=== PATIENT | female | born 2000 | race Caucasian/White ===

== ENCOUNTER 2025-01-19 09:12 | Outpatient (AMB) | payer OTHER, SELFPAY ==
--- NOTE | 2025-01-19 09:14 | A.OFFPC_ITS ---
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 She is transferring from pediatrics. 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 Has a degree in marketing is looking to get a full-time job. 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, [employer] Current occupational exposures/hazards: No Cognitive needs: No Hearing needs: No Vision needs: No Questionnaire Thrive Questionnaire I am a: Patient What is your living situation today?: I have a steady place to live Within the past 12 months, did the food you bought not last and you didn't have the money to get more?: Never true Within the past 12 months, did you worry whether your food would run out before you got money to buy more?: Never true Do you have trouble paying for medicines?: No Do you have trouble getting transportation to medical appointments?: No Do you have trouble paying your heating and electricity bill?: No Do you have trouble taking care of your child, family member or friend?: No Do you have trouble with day-to-day activities such as bathing, preparing meals, shopping, managing finances, etc.?: No Are you currently unemployed and looking for a job?: No Are you interested in more education?: Yes Please select the resources that you would like help with: None Currently or been in a relationship where the following occur: No concerns reported THRIVE Score: 0 AUDIT C Alcohol Use Questionnaire (AUDIT-C) 1. How often do you have a drink containing alcohol?: 2-4 times a month 2. How many drinks containing alcohol do you have on a typical day when you are drinking?: 3 or 4 3. How often do you have six or more drinks on one occasion?: Never Total Score: 3 GABY-7 AMB Questionnaire GABY-7 Feeling nervous, anxious, or on edge: 0 = Not at all Not being able to stop or control worryin = Not at all Worrying too much about different things: 0 = Not at all Trouble relaxin = Not at all Being so restless that it is hard to sit still: 0 = Not at all Becoming easily annoyed or irritable: 0 = Not at all Feeling afraid as if something awful might happen: 0 = Not at all Total GABY-7 score (0-4 normal; 5-9 mild; 10-14 moderate; 15-21 severe): 0 Source: Developed by Drs. Reza Dacosta, Eloisa Marmolejo, Srinivas Jacobson and colleagues, with an educational edu from [employer]. GABY-7 Assessment Billing GABY-7 Assessment Tool: GABY-7 Assessment 83801 Physical exam (Primary Care) Currently or been in a relationship where the following occur: No concerns reported Const Orientation/consciousness: patient oriented x3 HENMT Ears: hearing grossly normal bilaterally and TM's normal bilaterally General nose exam: No nasal polyps present Face and sinus: Yes sinuses nontender Mouth: Normal oral and palatal mucosa present Eyes Pupils: Equal, round and reactive pupils present EOM: EOMs intact bilaterally Neck Neck: Yes full ROM and Yes no lymphadenopathy Thyroid: Thyroid normal Chest Chest palpation & inspection: normal inspection of the chest Resp Auscultation: clear to auscultation bilaterally Cardio Rate: regular rate Rhythm: regular rhythm Heart sounds: S1 normal heart sound present and S2 normal heart sound present Peripheral pulses: Peripheral pulses 2+ throughout GI Other: Soft, nontender Auscultation: normal bowel sounds Rectal Exam - Female: deferred General: Yes no CVA tenderness Back/Spine/Pelvis Other: Nontender Back: no CVA tenderness Skin General skin exam: no rashes or lesions noted Neuro General: patient oriented x3, gait normal, CN's II-XI intact bilaterally and deep tendon reflexes 2+ bilaterally Cranial nerves: Yes Equal, round and reactive pupils present Motor exam (neuro): 5/5 motor strength present throughout Sensory Exam: double simultaneous stimulation for sensation normal Coordination: hwwzor-lh-wcgl test normal and Romberg test negative Extrem General: Yes normal to inspection and Yes full ROM Psych Affect: normal affect Attitude: cooperative Thought process: Normal thought process present Thought content: Normal thought content present Insight: Good insight present (Psych) Judgement: Good judgement present (Psych) Coding Level of Care Code New Pt Prev Care 18-39yr([id number] Diagnoses Routine general medical examination at a [facility] Z00.00 Additional Codes GABY-7 Assessment Billing - GABY-7 Assessment Tool: GABY-7 Assessment 74786 ([id number]) Assessment & Plan Assessment & Plan (1) Routine general medical examination at a health care facility: Code(s): Z00.00 - Encounter for general adult medical examination without abnormal findings Plan: reviewed labs ordered std testing ordered- will let me know if she develops sx refilled ocps referral to automobile brakes bonder Orders: Orders Comprehensive [place]. Panel Fast Today Z00.00 - Encounter for general adult me dical examination without abnormal findings, Z72.51 - High risk heterosexual behavior Complete Blood Count Auto Diff Today Z00.00 - Encounter for general adult medical examination without abnormal findings, Z72.51 - High risk heterosexual behavior TSH reflex Free T4 Today Z00.00 - Encounter for general adult medical examination without abnormal findings, Z72.51 - High risk heterosexual behavior Lipid Panel Today Z00.00 - Encounter for general adult medical examination without abnormal findings, Z72.51 - High risk heterosexual behavior Microalbumin, Random (w Creat) Today Z00.00 - Encounter for general adult medical examination without abnormal findings, Z72.51 - High risk heterosexual behavior Syphilis Screen Today Z00.00 - Encounter for general adult medical examination without abnormal findings, Z20.2 - Contact with and (suspected) exposure to infections with a predominantly sexual mode of transmission, Z72.51 - High risk heterosexual behavior Hepatitis C Antibody Today Z00.00 - Encounter for general adult medical examin ation without abnormal findings, Z72.51 - High risk heterosexual behavior UA CC w/rflx Micro + Cult Today R30.0 - Dysuria, Z00.00 - Encounter for general adult medical examination without abnormal findings, Z72.51 - High risk heterosexual behavior CT NG by PCR Urine Today R30.0 - Dysuria, Z00.00 - Encounter for general adult medical examination without abnormal findings, Z72.51 - High risk heterosexual behavior HIV Ab/Ag Today Z00.00 - Encounter for general adult medical examination without abnormal findings, Z20.2 - Contact with and (suspected) exposure to infections with a predominantly sexual mode of transmission, Z72.51 - High risk heterosexual behavior Referrals POWDERED SUGAR SUPERVISOR Referral Z01.419 - Encounter for gynecological examination (general) (routine) without abnormal findings Medications: New levonorgestrel-ethinyl estrad 0.1-20 mg-mcg (Lessina) 1 tab PO DAILY 84 tabs 3RF
[2025-01-19 09:15] VITALS: BP 118/72; PULSE 103; RESP 12; TEMP 36.8; O2SAT 98; BMI 25.3
--- OUTSIDE RECORDS SUMMARY | 2025-01-19 09:55 | XMS_ITS | Clinical Summary ---
Author Organization [facility] Address [address] [place] [id number] Phone Care Team Providers Care Plumber Name Role Phone Unavailable Primary Care Provider Unavailabl e Allergies No known active allergies Medications Multiple Vitamin (MULTIVITAMIN) tablet Take 1 tablet by mouth daily. Active Lessina 0.1-20 MG-MCG per tabletIndications: Encounter for other contraceptive management TAKE ONE TABLET BY MOUTH EVERY DAY 84 tablet 3 4 Active Active Problems Problem Noted Date Diagnosed Date High triglycerides 07/24/2023 Overview (07/24/2023): 05/2023- 216-normal total CHO. Unclear if was fasting sample. Repeat next year Vitiligo 05/26/2016 Immunizations Immunization Administration Dates Next Due DTaP 08/27/2004, 3,03/17/2001,01/13,2000 H1N1 03/14/2009 HPV, Quadrivalent 05/09/2014,11/02/2013,01/30/20 13 Hep A, Adult 12/23/2019 Hep A, ped/adol 03/02/2019 Hep B, ped/adol 06/25/2001,2000,2000 Hib (PRP-T) 12/08/2001, 2,01/13/2001,11/06 IPV 08/27/2004, 2,01/13/2001,11/06 Influenza 11/22/2008, 8,11/13/2006,01/28,02/12/2005,01/11/2005 Influenza, injectable, MDCK, preservative free, quadrivalent 12/20/2017 Influenza, injectable, quadr ivalent, preservative free 06/09/2023,02/28/2021,12/23/2019,12/02,11/15/2018,07/18/2016,01/02/2016 ,05/24/2015,12/12/2012 Influenza, injectable, triva lent, preservative free 04/03/2017 Influenza, intranasal, quadrivalent 11/02/2013 Influenza, intranasal, trivalent 12/23/2011,11/17,12/04/2009 MMR 10/03/2005,12/08/2001 Meningococcal Conj (Menactra) MCV4P 06/17/2018,1 02/21/2011 Pneumococcal Conjugate 03/17/2001,01/13/2001, Tdap 05/29/2021,12/23/2011 Varicella 11/18/2007,09/15/2001 Social History Tobacco Use Types Packs/Day Years Used Date Smoking Tobacco: Never Smokeless Tobacco: Never Comments:Denies smoking or v aping at all. Alcohol Use Standard Drinks/Week Comments Yes 0 (1 standard drink = 0.6 oz pure alcohol) Parents are aware, drinks only in social situations. Feels she is safe, Hunger/Food Answer Date Recorded In the last 12 months, did y ou or your family ever eat less than you felt you should because there wasn't enough money for food? No 05/29/2021 Stable Housing Answer Date Recorded Are you worried that in the next 2 months you may not have stable housing? No 05/29/2021 Transportation Concerns Answer Date Rec orded In the last 12 months, have you or your family ever had to go without healthcare because you didn't have a way to get there? No 05/29/2021 Hazards in Home Answer Date Recorded Think about the place you li ve. Do you have problems with any of the following? Pests (mice or roaches), mold, no/not working smoke detectors, water leaks, no window guards. No 2021 Financing Utilities Answer Date Recorde d In the last 12 months, has t he electric, gas, oil, or water company threatened to shut off your services in your home? No 05/29/2021 Safety at Home Answer Date Recorded Are you or your family worried about feeling saf e in your home? No 05/29/2021 Outside Support Answer Date Recorded Do you feel that you need mo re support from other people or programs to help you care for yourself or your family? No 05/29/2021 Understanding Health Concerns Answer Da te Recorded Do you need help understandi ng your or your child's healthcare needs (diagnosis, medications, plan, etc.)? No 05/29/2021 Financing Health Concerns Answer Date R ecorded In the last 12 months, was t here a time when your child needed to see a doctor or get medications or supplies but could not because of cost? No 05/29/2021 Missing School or Work Answer Date Francisco rded Did you or your child miss s chool or work because of a health problem that could have been avoided? No 05/29/2021 Comments No Sex and Gender Information Value Date Recorded Sex Assigned at Not on file Legal Sex Female 5:20 PM EST Gender Identity Not on file Sexual Orientation Straight 12/23/2019 8: 35 AM EST Last Filed Vital Signs Vital Sign Reading Time Taken Comments Blood Pressure 120/70 06/09/2023 9:44 AM EDT Pulse 82 06/09/2023 9:44 AM EDT Temperature 36.7 C (98.1 F) 11/02/2013 12:00 AM EDT Respiratory Rate - - Oxygen Saturation 98% 03/02/2019 3:27 PM EST Inhaled Oxygen Concentration - - Weight 68.3 kg (150 lb 9.6 oz) 06/09/2023 9:44 A M EDT Height 168.9 cm (5' 6.5 ) 06/09/2023 9:44 AM EDT Body Mass Index 23.94 06/09/2023 9:44 AM EDT Plan of Treatment Health Maintenance Due Date Last Done Comments Influenza Vaccines (#1) 2024 06/09/19 24, 12/19/2021, 02/28/2021, Additional history exists COVID-19 Vaccine ( season) 2024 12/19/2021, 02/28/2021, 07/04/2020, Additional history exists DTaP,Tdap,and Td Vaccines (8 - Td or Tdap) 05/30/2031 05/29/2021, 12/23/2011, 08/27/2004, Additional history exists Pneumococcal Vaccine Aged Out 03/17/2001, 01/13/2001, 2000 No longer eligible based on patient's age to complete this topic Hepatitis B Vaccines Completed 06/25/2001, 2000, 2000 HIB Vaccines Completed 12/08/2001, 02/18, 01/13/2001, Additional history exists IPV Vaccines Completed 08/27/2004, 08/19, 01/13/2001, Additional history exists MMR Vaccines Completed 10/03/2005, 12/08/2001 Varicella Vaccines Completed 11/18/2007, 09/15/2001 HPV Vaccines Completed 05/09/2014, 10/18, 01/29/2013 Meningococcal Vaccine Completed 06/17/2018, 012 Hepatitis A Vaccines Completed 12/23/2019, 03/02/19 20 Men B Vaccine Aged Out No longer elig ible based on patient's age to complete this topic Procedures * Due to [place] Open Lending law, this organization might not be sharing sensitive test results. Procedure Name Priority Date/Time Associated Diagnosis Comments CHLAMYDIA AND GONORRHEA, AMPLIFIED Routine 06/09/2023 9:59 AM EDT Screening examination for STI from Last 3 Months or Most Recently Relevant to Health Maintenance Results * Due to [place] Open Lending law, this organization might not be sharing sensitive test results. * (ABNORMAL) Chlamydia and Gonorrhoea, Amplified (06/09/2023 9:59 AM EDT) Chlamydia trachomatis RNA, TMA Detected(A) Not Detected 06/10/2023 9:44 AM EDT [facility] Neisseria gonorrhoeae, AIDAN Not Detected Not Detected 06/10/2023 9:44 AM EDT [facility] Specimen Type ENDOCERVICAL 9:44 AM EDT [facility] Swab (Vagina) 06/09/2023 9:5 9 AM EDT 06/09/2023 2:18 PM EDT us Sindy Molina NP LAB MICROBIOLOGY - GENERAL ORD ERABLES Final Result [facility] from Last 3 Months or Most Recently Relevant to Health Maintenance
--- OUTSIDE RECORDS SUMMARY | 2025-01-19 09:55 | XMS_ITS | Encounter Summary ---
Author Organization [facility] Address [address] [place] [id number] Phone Care Team Providers Care Helper Steel [employer]rication Name Role Phone Sindy Molina NP Primary Care Provider [phone] Encounter Details Date Type Department Care Team (Late st Contact Info) Description 09/25/2016 Conversion Encounter [facility] - [address], [address] [place] [address] Sindy Molina NP [address] [place] [address] Social History Tobacco Use Types Packs/Day Years Used Date Smoking Tobacco: Never Assessed Comments Unknown Sex and Gender Information Value Date Recorded Sex Assigned at Not on file Legal Sex Female 5:20 PM EST Gender Identity Not on file Sexual Orientation Straight 12/23/2019 8: 35 AM EST documented as of this encounter Plan of Treatment Not on file documented as of this encounter Visit Diagnoses Not on filedocumented in this encounter Care Teams [employer] Relationship Specialty Start Date End Date Sindy Molina NP [address] [place] [address] PCP - General 04/09/16 11/12/23 documented as of this encounter
--- OUTSIDE RECORDS SUMMARY | 2025-01-19 09:55 | XMS_ITS | Encounter Summary ---
Author Organization [facility] Address [address] [place] [address] Phone Care Team Providers Care Community Service Patrol Officer Name Role Phone Sindy Molina TOXICOLOGIST Primary Care Provider [phone] Reason for Visit * Reason Comments Med Refill Encounter Details Date Type Department Care Team (Late st Contact Info) Description 03/08/2021 Refill [facility] - [place] [address] [place] [address] Sindy Molina NP [address] [place] [address] Encounter for other contraceptive management Social History Tobacco Use Types Packs/Day Years Used Date Smoking Tobacco: Never Smokeless Tobacco: Never Alcohol Use Standard Drinks/Week Comments Yes 0 (1 standard drink = 0.6 oz pure alcohol) parents are aware, socially, only last month Hunger/Food Answer Date Recorded In the last 12 months, did y ou or your family ever eat less than you felt you should because there wasn't enough money for food? No 12/23/2019 Stable Housing Answer Date Recorded Are you worried that in the next 2 months you may not have stable housing? No 12/23/2019 Transportation Concerns Answer Date Rec orded In the last 12 months, have you or your family ever had to go without healthcare because you didn't have a way to get there? No 12/23/2019 Hazards in Home Answer Date Recorded Think about the place you li ve. Do you have problems with any of the following? Pests (mice or roaches), mold, no/not working smoke detectors, water leaks, no window guards. No 2019 Financing Utilities Answer Date Recorde d In the last 12 months, has t he electric, gas, oil, or water company threatened to shut off your services in your home? No 12/23/2019 Safety at Home Answer Date Recorded Are you or your family worried about feeling saf e in your home? No 12/23/2019 Outside Support Answer Date Recorded Do you feel that you need mo re support from other people or programs to help you care for yourself or your family? No 12/23/2019 Understanding Health Concerns Answer Da te Recorded Do you need help understandi ng your or your child's healthcare needs (diagnosis, medications, plan, etc.)? No 12/23/2019 Financing Health Concerns Answer Date R ecorded In the last 12 months, was t here a time when your child needed to see a doctor or get medications or supplies but could not because of cost? No 12/23/2019 Missing School or Work Answer Date Francisco rded Did you or your child miss s chool or work because of a health problem that could have been avoided? No 12/23/2019 Comments No Sex and Gender Information Value Date Recorded Sex Assigned at Not on file Legal Sex Female 5:20 PM EST Gender Identity Not on file Sexual Orientation Straight 12/23/2019 8: 35 AM EST documented as of this encounter Plan of Treatment Not on file documented as of this encounter Visit Diagnoses Diagnosis Encounter for other contraceptive management documented in this encounter Care Teams Community Service Patrol Officer Relationship Specialty Start Date End Date Sindy Molina NP [address] [place] [id number] PCP - General 04/09/16 11/12/23 documented as of this encounter
--- OUTSIDE RECORDS SUMMARY | 2025-01-19 09:55 | XMS_ITS | Encounter Summary ---
Author Organization [facility] Address [address] [place] [id number] Phone Care Team Providers Care Assisted Living Manager Name Role Phone Sindy Molina COIL CLEANER Primary Care Provider [phone] Reason for Visit * Reason Comments Med Refill Encounter Details Date Type Department Care Team (Late st Contact Info) Description 05/27/2021 Refill [facility] - [place] [address] [place] [address] Sindy Molina NP [address] [place] [address] Encounter for other contraceptive management Social History [...] management documented in this encounter Care Teams Assisted Living Manager Relationship Specialty Start Date End Date Sindy Molina NP [address] [place] [address] PCP - General 04/09/16 11/12/23 documented as of this encounter
--- OUTSIDE RECORDS SUMMARY | 2025-01-19 09:55 | XMS_ITS | Clinical Summary ---
Author Organization [facility] Address [address] [place], [place] [id number] Phone Care Team Providers Care Rn Acute Dialysis Name Role Phone Pcp, Unknown Primary Care Provider Unavailabl e Allergies No known active allergies Medications FALMINA, 28, 0.1-20 mg-mcg per tablet 10/01/2020 Active multivitamin-Ca- iron-minerals Tab Take 1 tablet by mouth daily. Active levonorgestrel-e thinyl estradiol (AVIANEMAYCOL,L ESSINA) 0.1-0.02 mg per tablet Take 1 tablet by mouth daily. 08/24/2023 Active Active Problems Problem Noted Date Diagnosed Date High triglycerides 07/24/2023 Overview (03/10/2024): 05/2023- 216-normal total CHO. Unclear if was fasting sample. Repeat next year Vitiligo 05/26/2016 Immunizations Immunization Administration Dates Next Due DTaP 08/27/2004, 3,03/17/2001,01/13,2000 [id number] FORMULATION 03/14/2009 HPV,quadrivalent 05/09/2014,11/02/2013, 3 Hepatitis A, Adult 12/23/2019 Hepatitis A, ped/adol, 2 dose 03/02/2019 Hepatitis B 06/25/2001,2000,2000 Hib,PRP-T 12/08/2001, 2,01/13/2001,11/06 INFLUENZA, SPLIT VIRUS, TRIVALENT PF 04/03/2017 IPV 08/27/2004, 2,01/13/2001,11/06 Influenza Quadrivalent Intranasal 11/02/2013 Influenza Quadrivalent MDCK Preservative Free IM 12/20/2017 Influenza Quadrivalent Prese rvative Free IM 12/23/2019,12/02/2018,11/15/2018,07/18,01/02/2016,05/24/2015,12/12/2012 Influenza quadrivalent nasal 12/23/2011,12/06/19 11,12/04/2009 Influenza, Unspecified Formulation 11/22,11/18/2007,11/13/2006,01/28,02/12/2005,01/11/2005 MMR 10/03/2005,12/08/2001 Meningococcal MCV4P 06/17/2018,12/23/2011 Pneumococcal conjugate, PCV 7 03/17/2001, 001,2000 Tdap 12/23/2011 Varicella 11/18/2007,09/15/2001 Social History Tobacco Use Types Packs/Day Years Used Date Smoking Tobacco: Never Smokeless Tobacco: Never Tobacco Cessation:Counseling Given: Not Answered Alcohol Use Standard Drinks/Week Comments Yes 0 (1 standard drink = 0.6 oz pur e alcohol) occasionally per patient Education Answer Date Recorded Are you interested in more education? Not on ivette e 06/14/2022 Are you concerned about learning? Not on file 06/14/2022 No 06/14/2022 No 06/14/2022 Digital Access Answer Date Recorded No 07/12/2022 No 07/12/2022 Reliable internet access at home? Not on file 07/12/2022 Device with a working camera? Not on file Comments Unknown Sex and Gender Information Value Date Recorded Sex Assigned at Not on file Legal Sex Female 8:46 PM EDT Gender Identity Not on file Sexual Orientation Not on file Last Filed Vital Signs Vital Sign Reading Time Taken Comments Blood Pressure 126/83 03/10/2024 2:47 PM EST Pulse 74 03/10/2024 2:47 PM EST Temperature 36.9 C (98.4 F) 03/10/2024 2:47 PM EST Respiratory Rate 16 03/10/2024 2:47 PM EST Oxygen Saturation 98% 03/10/2024 2:47 PM EST Inhaled Oxygen Concentration - - Weight 63.5 kg (140 lb) 03/06/2023 2:39 PM EST p er pt Height 167.6 cm (5' 5.98 ) 12/03/2020 11:47 AM E DT Body Mass Index 22.61 12/03/2020 11:47 AM EDT Plan of Treatment Health Maintenance Due Date Last Done Comments DEPRESSION SCREENING 2012 HEPATITIS C SCREENING 2018 HIV ONE-TIME SCREENING (18-65 YEARS) 2018 PAP SMEAR 2021 INFLUENZA VACCINE (#1) 2024 , 12/19/2021, 02/28/2021, Additional history exists COVID-19 VACCINE ( season) 2024 12/19/2021, 02/28/2021, 07/04/2020, Additional history exists CHLAMYDIA SCREENING 03/10/2025 03/10/2024, 06/09/2023, 05/29/2021, Additional history exists SMOKING Hx and SMOKELESS TOBACCO SCREENING 03/10/2025 03/10/2024 Adult Td,Tdap Booster 05/30/2031 05/29/2021, 012 PNEUMOCOCCAL VACCINES (0-49 years) Aged Out 03/17/2001, 01/13/2001, 2000 No longer eligible based on patient's age to complete this topic HIB VACCINES Completed 12/08/2001, 02/18, 01/13/2001, Additional history exists HPV VACCINES Completed 05/09/2014, 10/18, 01/29/2013 MENINGOCOCCAL VACCINES (ACWY) Completed 06/17/2018, 12/23/2011 HEPATITIS A VACCINES Completed 12/23/2019, 03/02/19 MENINGOCOCCAL VACCINES (B) Aged Out N o longer eligible based on patient's age to complete this topic Medical Devices Not on file Procedures Procedure Name Priority Date/Time Associated Diagnosis Comments CHLAMYDIA TRACHOMATIS AND NEISSERIA GONORRHOEAE NUCLEIC ACID DETECTION Routine 03/10/2024 3:33 PM EST Vaginal discharge from Last 3 Months or Most Recently Relevant to Health Maintenance Results * (ABNORMAL) Chlamydia Trachomatis and Neisseria Gonorrhoeae Nucleic Acid Detection (03/10/2024 3:33 PM EST) CHLAMYDIA TRACHOMATIS Detected(A) Not Detected [facility] NEISERIA GONORRHOEAE Not Detected Not Detected [facility] SPECIMEN TYPE URINE [facility] Urine (Urine) 03/10/2024 3:3 3 PM EST 03/10/2024 5:07 PM EST Lorena Rivera [facility] GENERAL ORDERABLES Stephany roblero Result [facility] [address], [place] [id number] from Last 3 Months or Most Recently Relevant to Health Maintenance Insurance [facility] Member Subscriber Plan / Payer (Ef fective 2020-Present) Name:Brea Alicea Relation to Subscriber:Child Name:NIXONORA Date of :1900 Address: [address] [place] [address] Payer ID:[id number] ([facility]) Type:PPO Address: [address] [place] [address] Member Subscriber Plan / Payer (Ef fective 2020-Present) Name:Brea Alicea Relation to Subscriber:Child Name:NIXONORA Date of :1900 Address: [address] [place] [address] Payer ID:[id number] ([facility]) Type:PPO Address: [address] [place] [address] R Member Subscriber Plan / Payer (Ef fective 2020-Present) Name:Brea Alicea Relation to Subscriber:Child Name:ORA ALICEA Date of :1900 Address: [address] [place] [address] Payer ID:[id number] ([employer]) Type:PPO Address: [address] [place] [address] * Guarantor: Brea Alicea Account Type Relation to Patient Date of Phone Billing Address Personal/Family Self [address] [place] [address] [facility] Member Subscriber Plan / Payer (Ef fective 2020-Present) Name:Nixon Brea Relation to Subscriber:Child Name:ORA ALICEA Date of :1900 Address: [address] [place] [address] Payer ID:[id number] ([employer]) Type:PPO Address: [address] [place] [address] [facility] Member Subscriber Plan / Payer (Ef fective 2020-Present) Name:Helen Aliceaily Relation to Subscriber:Child Name:ORA ALICEA Date of :1900 Address: [address] [place] [address] Payer ID:[id number] ([employer]) Type:PPO Address: [address] [place] [address] [employer] Member Subscriber Plan / Payer (Ef fective 2020-Present) Name:Brea Alicea Relation to Subscriber:Child Name:ORA ALICEA Date of :1900 Address: [address] [place] [address] Payer ID:[id number] ([employer]) Type:PPO Address: [address] [address] [place] [address] [place] [address] Member Subscriber Plan / Payer (Ef fective 2020-Present) Name:Brea Alicea Relation to Subscriber:Child Name:ORA ALICEA Date of :1900 Address: [address] [place] [address] Payer ID:[id number] ([employer]) Type:PPO Address: [address] [address] [place] [address] [employer] Member Subscriber Plan / Payer (Ef fective 2015-Present) Name:Brea Alicea Relation to Subscriber:Child Name:ORA ALICEA Date of :1900 Address: [address] [place] [address] Payer ID:[id number] ([employer]) Type:Indemnity Address: [address] [place] [address] Care Teams Rn Acute Dialysis Relationship Specialty Start Date End Date Pcp, Unknown PCP - General 03/10/24 Additional Source Comments The information contained in this document represents components of the legal health record. It is not the complete legal health record.[facility]
--- OUTSIDE RECORDS SUMMARY | 2025-01-19 09:55 | XMS_ITS | Encounter Summary ---
Author Organization [facility] Address [address] [place] [address] Phone Care Team Providers Care Steel Fitter Name Role Phone Sindy Molina HOT STAMP OPERATOR Primary Care Provider [phone] Reason for Visit * Reason Comments Med Refill Encounter Details Date Type Department Care Team (Late st Contact Info) Description 09/29/2022 Refill [facility] - [place] [address] [place] [address] Sindy Molina NP [address] [place] [address] Encounter for other contraceptive management Social History [...] AM EST documented as of this encounter Miscellaneous Notes * Telephone Encounter - Jacqui Wells - 09/30/2022 8:26 AM EDT LVM for pt to CB to schedule overdue WCV * Telephone Encounter - Sindy Molina NP - 09/29/2022 6:39 AM EDT Overdue for well visit. Received RF request for OCP, sent 3mo RF but patient must come in for well visit in order to continue refills, Please schedule, thank you documented in this encounter Plan of Treatment Not on file documented as of this encounter Visit Diagnoses Diagnosis Encounter for other contraceptive management documented in this encounter Care Teams Steel Fitter Relationship Specialty Start Date End Date Sindy Molina NP [address] [place] [address] PCP - General 04/09/16 11/12/23 documented as of this encounter
--- OUTSIDE RECORDS SUMMARY | 2025-01-19 09:55 | XMS_ITS | Encounter Summary ---
Author Organization [facility] Address [address] [place] [address] Phone Care Team Providers Care Laboratory Helper Name Role Phone Sindy Molina PROJECT ACCOUNTANT Primary Care Provider [phone] Reason for Visit * Reason Comments Med Refill Encounter Details Date Type Department Care Team (Late st Contact Info) Description 08/19/2021 Refill [facility] - [place] [address] [place] [address] Sindy Molina NP [address] [place] [address] Encounter for other contraceptive management Social History [...] management documented in this encounter Care Teams Laboratory Helper Relationship Specialty Start Date End Date Sindy Molina NP [address] [place] [address] PCP - General 04/09/16 11/12/23 documented as of this encounter
--- OUTSIDE RECORDS SUMMARY | 2025-01-19 09:55 | XMS_ITS | Encounter Summary ---
Author Organization [facility] Address [address] [place] [address] Phone Care Team Providers Care Cage Shift Manager Name Role Phone Sindy Molina MOTORSPORTS TECHNICIAN Primary Care Provider [phone] Reason for Visit * Reason Onset Date Comments Med Refill 04/09/2019 Encounter Details Date Type Department Care Team (Late st Contact Info) Description 04/09/2019 Refill [facility] Pediatrics - [address] [phone] Shelia Jimenes LPN Encounter for other contraceptive management Social History Tobacco Use Types Packs/Day Years Used Date Smoking Tobacco: Never Smokeless Tobacco: Never Alcohol Use Standard Drinks/Week Comments Yes 0 (1 standard drink = 0.6 oz pure alcohol) parents are aware, socially, only last month Hunger/Food Answer Date Recorded No 06/17/2018 Stable Housing Answer Date Recorded No 02/20/2019 Transportation Concerns Answer Date Rec orded No 06/17/2018 Hazards in Home Answer Date Recorded No 06/17/2018 Financing Utilities Answer Date Recorde d No 06/17/2018 Safety at Home Answer Date Recorded No 06/17/2018 Outside Support Answer Date Recorded No 06/17/2018 Understanding Health Concerns Answer Da te Recorded No 06/17/2018 Financing Health Concerns Answer Date R ecorded No 06/17/2018 Missing School or Work Answer Date Francisco rded No 06/17/2018 Comments No Sex and Gender Information Value Date Recorded Sex Assigned at Not on file Legal Sex Female 5:20 PM EST Gender Identity Not on file Sexual Orientation Straight 12/23/2019 8: 35 AM EST documented as of this encounter Miscellaneous Notes * Telephone Encounter - Shelia Jimenes LPN - 04/09/2019 10:16 AM EST Mom called; needed to reschedule her med recheck appointment to when patient has spring break. Patient in need of OCP refill Refill requested for Brea???s: [email or web address] Dose: One tablet daily Refill request source: Phone call-- parent/guardian This medication was last refilled on 03/02/19. An office visit is recommended. Being rescheduled for spring break week. To be faxed electronically. [id number] - [place], [place] - [address] [place] [id number] PCP:Sindy Molina NP documented in this encounter Plan of Treatment Not on file documented as of this encounter Visit Diagnoses Diagnosis Encounter for other contraceptive management documented in this encounter Care Teams Cage Shift Manager Relationship Specialty Start Date End Date Sindy Molina NP [address] [place] [address] PCP - General 04/09/16 11/12/23 documented as of this encounter
--- OUTSIDE RECORDS SUMMARY | 2025-01-19 09:55 | XMS_ITS | Encounter Summary ---
Author Organization [facility] Address [address] [place] [address] Phone Care Team Providers Care Business Office Manager Name Role Phone Sindy Molina DECAL MAKER Primary Care Provider [phone] Reason for Visit * Reason Onset Date Comments Med Refill schedule well visit or start w/ adult provider 0 07/15/2022 Encounter Details Date Type Department Care Team ([facility] st Contact Info) Description 07/15/2022 Refill [facility] - [place] [address] [place] [address] Sindy Molina NP [address] [place] [address] Encounter for other contraceptive management Social History [...] Miscellaneous Notes * Telephone Encounter - Jacqui Causey - 10/02/2022 9:47 AM EDT Sent a postcard * Telephone Encounter - Jacqui Causey - 09/24/2022 11:53 AM EDT Sent a text message * Telephone Encounter - Jacqui Causey - 09/11/2022 11:56 AM EDT Left message to call back and schedule appointment. * Telephone Encounter - Jacqui Causey - 08/22/2022 9:30 AM EDT Left message to call back and schedule appointment. * Telephone Encounter - Jacqui Causey - 08/05/2022 3:15 PM EDT Left message to call back and schedule appointment. * Telephone Encounter - Jacqui Causey - 07/16/2022 11:46 AM EDT No WCVs until Oct, will call when available * Telephone Encounter - Sindy Molina NP - 07/16/2022 5:23 AM EDT Please schedule well visit or she can call adult provider and begin care there, Thank you documented in this encounter Plan of Treatment Not on file documented as of this encounter Visit Diagnoses Diagnosis Encounter for other contraceptive management documented in this encounter Care Teams Business Office Manager Relationship Specialty Start Date End Date Sindy Molina NP [address] [place] [address] PCP - General 04/09/16 11/12/23 documented as of this encounter
== END 2025-01-19 09:52 | disposition home or self-care (01) ==
LOC: HO.HMCFM 09:12
PROVIDERS: PCP Physician Assistant; Visit Provider Physician Assistant
DX: Z23 Encounter for immunization (principal)

== ENCOUNTER → 2025-01-19 09:12 | Outpatient (BNVA) | payer OTHER, SELFPAY | PROVIDERS: PCP Physician Assistant; Visit Provider Physician Assistant | DX: Z00.00 Encounter for general adult medical examination without abnormal findings (principal); Z23 Encounter for immunization | CPT/HCPCS: 90471; 90656; 96127 ==